=== PATIENT | female | born 1965 | race Caucasian/White ===

== ENCOUNTER 2016-03-14 12:50 | Outpatient (CLI) ==
[2015-12-12 12:27] VITALS: BMI 26.6
[2016-03-14 13:17] LABS: BASOPHILS % (AUTO) 0.9 % (0.0-3.0); EOSINOPHILS # (AUTO) 0.2 K/ul (0.0-0.7); EOSINOPHILS % (AUTO) 3.9 % (0.0-7.0); HEMATOCRIT 43.2 % (37.0-47.0); HEMOGLOBIN 14.5 g/dl (12.0-16.0); IMMATURE GRANULOCYTE % (AUTO) 0.2 % (0.0-5.0); LYMPHOCYTES # (AUTO) 2.1 K/uL (0.60-3.4); MEAN CORPUSCULAR HEMOGLOBIN 29.6 pg (27.0-31.0); MEAN CORPUSCULAR HGB CONC 33.6 (31.8-35.4); MEAN CORPUSCULAR VOLUME 88.2 fl (81.0-99.0); MONOCYTES # (AUTO) 0.3 K/uL (0.4-2.0); NEUTROPHILS # (AUTO) 1.9 K/ul (2.0-6.9); PLATELET COUNT 187 10^3/uL (140-440); WHITE BLOOD COUNT 4.59 K/ul (4.6-10.2)
[2016-03-14 14:26] LABS: ALBUMIN/GLOBULIN RATIO 1.38; ANION GAP 9.2; BILIRUBIN,TOTAL 0.84 mg/dL (0.00-1.20); BUN/CREATININE RATIO 7.14; CALCIUM 9.5 mg/dL (8.2-10.2); CHOL/HDL RATIO 4.6 (4.5-5.5); CREATININE 0.84 mg/dL (0.60-1.30); POTASSIUM 4.2 mmol/L (3.5-5.10); TOTAL PROTEIN 6.9 g/dL (6.4-8.2)
== END 2016-03-14 12:51 | disposition home or self-care (01) ==
LOC: LAB 12:50
PROVIDERS: ATTEND Nurse Practitioner Family
DX: E78.5 Hyperlipidemia, unspecified (principal); F32.9 Major depressive disorder, single episode, unspecified
CPT/HCPCS: 36415; 80053; 80061; 84439; 84443; 85025

== ENCOUNTER → 2016-05-22 | Outpatient (POV) ==
[2015-12-12 12:27] VITALS: BMI 26.6
== END ==
LOC: OUTPT 00:01
PROVIDERS: ATTEND Otolaryngology
DX: H91.90 Unspecified hearing loss, unspecified ear (principal)
CPT/HCPCS: 92557; 92567

== ENCOUNTER 2016-10-14 13:12 | Outpatient (CLI) ==
[2015-12-12 12:27] VITALS: BMI 26.6
[2016-10-14 13:22] LABS: BASOPHILS % (AUTO) 0.7 % (0.0-3.0); EOSINOPHILS # (AUTO) 0.1 K/ul (0.0-0.7); EOSINOPHILS % (AUTO) 2.6 % (0.0-7.0); HEMATOCRIT 42.3 % (37.0-47.0); HEMOGLOBIN 14.5 g/dl (12.0-16.0); IMMATURE GRANULOCYTE % (AUTO) 0.4 % (0.0-5.0); LYMPHOCYTES # (AUTO) 1.7 K/uL (0.60-3.4); LYMPHOCYTES % (AUTO) 37.9 (10.0-50.0); MEAN CORPUSCULAR HEMOGLOBIN 29.9 pg (27.0-31.0); MEAN CORPUSCULAR HGB CONC 34.3 (31.8-35.4); MEAN CORPUSCULAR VOLUME 87.2 fl (81.0-99.0); MONOCYTES # (AUTO) 0.4 K/uL (0.4-2.0); MONOCYTES % (AUTO) 8.3 (0-10); NEUTROPHILS # (AUTO) 2.3 K/ul (2.0-6.9); NEUTROPHILS % (AUTO) 50.1; PLATELET COUNT 187 10^3/uL (140-440); RED BLOOD COUNT 4.85 10^6/ul (4.20-5.40); WHITE BLOOD COUNT 4.57 K/ul (4.6-10.2)
[2016-10-14 13:46] LABS: ALBUMIN 3.8 g/dL (3.4-5.0); ALBUMIN/GLOBULIN RATIO 1.36; ANION GAP 13.2; BILIRUBIN,TOTAL 0.68 mg/dL (0.00-1.20); BUN/CREATININE RATIO 8.13; CALCIUM 9.5 mg/dL (8.2-10.2); CHOL/HDL RATIO 4.3 (4.5-5.5); CREATININE 0.86 mg/dL (0.60-1.30); POTASSIUM 4.2 mmol/L (3.5-5.10); TOTAL PROTEIN 6.6 g/dL (6.4-8.2)
== END 2016-10-14 13:13 | disposition home or self-care (01) ==
LOC: LAB 13:12
PROVIDERS: ATTEND Nurse Practitioner Family
DX: E78.5 Hyperlipidemia, unspecified (principal); F32.9 Major depressive disorder, single episode, unspecified
CPT/HCPCS: 36415; 80053; 80061; 84443; 85025

== ENCOUNTER 2016-10-22 11:47 | Emergency (ER) ==
[2016-10-22 11:52] VITALS: BP 108/72; TEMP 97.3; BMI 27.3
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
[2016-10-22] MEDS ORDERED: BENADRYL IM STA (12:23)
[2016-10-22] MEDS ORDERED: DECADRON 4 MG/ML SDV IM STA (12:23)
== END 2016-10-22 13:01 | disposition home or self-care (01) ==
LOC: ED 11:47
DX: T36.8X5A Adverse effect of other systemic antibiotics, initial encounter (principal); L50.0 Allergic urticaria; F17.210 Nicotine dependence, cigarettes, uncomplicated
CPT/HCPCS: 96372; 99282

== ENCOUNTER 2017-04-14 10:16 | Outpatient (CLI) | END 2017-04-14 10:17 | disposition home or self-care (01) | LOC: RHC-LAB 10:16 | PROVIDERS: ATTEND Emergency Medicine | DX: E78.5 Hyperlipidemia, unspecified (principal); F32.9 Major depressive disorder, single episode, unspecified | CPT/HCPCS: 36415; 80053; 80061; 84443; 85025 ==

== ENCOUNTER 2017-04-15 11:41 | Outpatient (CLI) ==
--- NOTE | 2017-04-15 13:06 | DI ---
EXAM: LEFT KNEE. HISTORY: Left knee pain FINDINGS: Left knee four view. Articular cartilage width is normal. There is no fracture or joint effusion. Bone density and soft tissues are within normal limits. IMPRESSION: Within normal limits.
== END 2017-04-15 11:42 | disposition home or self-care (01) ==
LOC: RAD 11:41
PROVIDERS: ATTEND Emergency Medicine
DX: M25.562 Pain in left knee (principal); G89.29 Other chronic pain

== ENCOUNTER 2017-04-17 10:29 | Outpatient (CLI) ==
--- NOTE | 2017-04-18 08:17 | MAMMO ---
EXAM: Digital screening mammogram with 3-D tomosynthesis and CAD HISTORY: Screening mammogram. COMPARISON: Mammogram 07/21/2015 and 12/13/2013 FINDINGS: Images demonstrate scattered fibroglandular breast densities. Benign calcifications are unc hanged. There is no suspicious or new calcification or mass. There has been no significant interval change. IMPRESSION: No new or suspicious calcification or mass. Recommendations: Annual screening mammogram. BIRADS category II: Benign findings
== END 2017-04-17 10:30 | disposition home or self-care (01) ==
LOC: RAD 10:29
PROVIDERS: ATTEND Emergency Medicine
DX: Z12.31 Encounter for screening mammogram for malignant neoplasm of breast (principal)
CPT/HCPCS: 77067

== ENCOUNTER 2017-09-15 13:00 | Outpatient (RCR) ==
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
== END 2017-09-16 23:59 ==
PROVIDERS: ATTEND Orthopaedic Surgery
DX: M25.562 Pain in left knee (principal); G89.29 Other chronic pain; M17.12 Unilateral primary osteoarthritis, left knee

== ENCOUNTER 2017-10-03 14:00 | Outpatient (RCR) ==
[2017-04-17 10:34] VITALS: BMI 27.3
--- NOTE | 2017-09-17 11:52 | RS.CXNS ---
Date of scheduled appointment: 09/17/17 Type: Cancel Reason for Cancel/NS: Patient going out of town, rescheduled.
--- NOTE | 2017-09-23 15:42 | RS.OPPTDN ---
Subjective Date of Note: 09/23/17 Visit #: 3 Date of Evaluation: 09/10/17 Payer Source: Medicaid Treatment Diagnosis: L knee pain, L knee OA Current Subjective/complaints:: Patient says she is wore out from her trip to [place]. She says she is able to tell though that she can walk more without her knee hurting so badly. *Precautions: n/a Pain Assessment - Pain Description Pain Location: does not rate, but says it is bothering her more due to driving - Treatment Modality: Electrical Stim Unattended Parameters/Method Applied: L knee IFC 4 large pads crossed @ 12-13 ma x 20 mins after therex Patient Position: Supine - Heat/Cryotherapy Treatment: Cryotherapy Interventions - Exercise/Activities/Manual Therapy Exercises/Activities: Patient received passive HS and heel cord stretching for the L LE. PROM for knee flexion. Begins: QS, SAQ with 1 1/2#, SLR, Ball squeezes, hip abd in hooklying progressed to green tband, ham curls/DF progressed to green tband, all 2x10 reps. Patient received education on diagnosis and joint mechanics with review of HEP. Total minutes of Exercise: 25 Manual Therapy: na HOME EXERCISE PROGRAM: pt given written HEP including AP, QS, SAQ, LAQ, SLR - Charges Timed Code Treatment Minutes: 25 Total Treatment Time: 45 Procedures billed for this date of service:: cp, estim(un), ex2 Assessment: Patient experiencing general fatigue and elevated soreness to the L knee following prolonged drive to/from [place] to see her daughter. She is able to amb further distances with less difficulty now however. She is compliant with HEP and did express reduced pain after todays session. Patient Education: Body/Joint mechanics, Home Exercise Program Patient demonstrates compliance with HEP?: Yes Short Term Goals Goal #1: pt independent with initial HEP Goal to be met by: 09/24/17 Progress towards Goal:: Progressing Goal #2: pt with L knee ext 0 Goal to be met by: 09/24/17 Progress towards Goal:: Progressing Goal #3: pt amb with improved heel strike/toe off pattern with decreased pain Goal to be met by: 09/24/17 Progress towards Goal:: Progressing Goal #4: pt with decreased edema L knee Goal to be met by: 09/24/17 Progress towards Goal:: Progressing Senior Mechanical Estimator Goals Goal #1: pt with L knee ROM WFL's Goal to be met by: 10/08/17 Progress towards goal: Progressing Goal #2: pt report decreased pain with normal household activities Goal to be met by: 10/08/17 Goal #3: Increased strength L knee 4+/5 Goal to be met by: 10/08/17 Goal #4: . Plan PLAN OF CARE EXPIRES ON:: 10/08/17 ORDER # VISITS AND/OR THROUGH DATE: 10/08/17 PLAN: Continue for therex to the L LE improving ROM, strength, and pain.
--- NOTE | 2017-09-26 15:15 | RS.OPPTDN ---
Subjective Date of Note: 09/26/17 Visit #: 4 Date of Evaluation: 09/10/17 Payer Source: Medicaid Treatment Diagnosis: L knee pain, L knee OA Current Subjective/complaints:: Patient says she can tell that her swelling is less and her knee is stronger. She reports it continues to pop many times throughout the day. *Precautions: n/a - Treatment Modality: Electrical Stim Unattended Parameters/Method Applied: hivolt 4 large pads crossed over the L knee following therex @ 80 pk volts x 20 mins Patient Position: Supine - Heat/Cryotherapy Treatment: Cryotherapy Interventions - Exercise/Activities/Manual Therapy Exercises/Activities: Patient received passive HS and heel cord stretching for the L LE. PROM for knee flexion. Continues with: QS, SAQ progressed to 2#, SLR, Ball squeezes, hip abd with knee extended, hip abd in hooklying progressed to green tband, ham curls/DF progressed to green tband, all 2x10 reps. Patient received education on diagnosis and joint mechanics with review of HEP. Total minutes of Exercise: 25 Manual Therapy: na HOME EXERCISE PROGRAM: pt given written HEP including AP, QS, SAQ, LAQ, SLR - Charges Timed Code Treatment Minutes: 25 Total Treatment Time: 45 Procedures billed for this date of service:: cp, estim (un), ex2 Assessment: Patient progressing with improved pain level, swelling, and strength. She denies feeling that the knee is unstable when descending steps now. Progress strengthening next week to leg press and standing tband exercises. Patient Education: Body/Joint mechanics, Home Exercise Program, Education of Plan of Care Patient demonstrates compliance with HEP?: Yes Short Term Goals Goal #1: pt independent with initial HEP Goal to be met by: 09/24/17 Progress towards Goal:: Progressing Goal #2: pt with L knee ext 0 Goal to be met by: 09/24/17 Progress towards Goal:: Progressing Goal #3: pt amb with improved heel strike/toe off pattern with decreased pain Goal to be met by: 09/24/17 Progress towards Goal:: Progressing Goal #4: pt with decreased edema L knee Goal to be met by: 09/24/17 Progress towards Goal:: Progressing Usp Goals Goal #1: pt with L knee ROM WFL's Goal to be met by: 10/08/17 Progress towards goal: Progressing Goal #2: pt report decreased pain with normal household activities Goal to be met by: 10/08/17 Goal #3: Increased strength L knee 4+/5 Goal to be met by: 10/08/17 Goal #4: . Plan PLAN OF CARE EXPIRES ON:: 10/08/17 ORDER # VISITS AND/OR THROUGH DATE: 10/08/17 PLAN: Patient to continue x 4 more sessions.
--- NOTE | 2017-09-29 16:44 | RS.OPPTDN ---
Subjective Date of Note: 09/29/17 Visit #: 5 Date of Evaluation: 09/10/17 Payer Source: Medicaid Treatment Diagnosis: L knee pain, L knee OA Current Subjective/complaints:: Patient says she is having a bad day today. Reports increased L knee pain. Feels weather is changing. Describes ache and stiffness. Asks to avoid ice/estim after therex today. *Precautions: n/a Interventions - Exercise/Activities/Manual Therapy Exercises/Activities: Patient received passive HS and heel cord stretching for the L LE. PROM for knee flexion. Continues with: QS, SAQ progressed to 2#, SLR, Ball squeezes, hip abd/add with knee extended with green tband, hip abd in hooklying progressed to green tband, ham curls/DF green tband, all 2x10 reps. Total minutes of Exercise: 33 Manual Therapy: na HOME EXERCISE PROGRAM: pt given written HEP including AP, QS, SAQ, LAQ, SLR - Charges Timed Code Treatment Minutes: 33 Total Treatment Time: 33 Procedures billed for this date of service:: ex2 Assessment: Patient presents with elevated pain to the L knee generally throughout the joint. She appears to vincent all therex well except increased fatigue with SLR. No increase in swelling noted and remains with normal ROM. Omitted modalities per her request so that she may return home. Patient Education: Home Exercise Program, Activity Modification Patient demonstrates compliance with HEP?: Yes Short Term Goals Goal #1: pt independent with initial HEP Goal to be met by: 09/24/17 Progress towards Goal:: Progressing Goal #2: pt with L knee ext 0 Goal to be met by: 09/24/17 Progress towards Goal:: Progressing Goal #3: pt amb with improved heel strike/toe off pattern with decreased pain Goal to be met by: 09/24/17 Progress towards Goal:: Progressing Goal #4: pt with decreased edema L knee Goal to be met by: 09/24/17 Progress towards Goal:: Progressing Shelter Goals Goal #1: pt with L knee ROM WFL's Goal to be met by: 10/08/17 Progress towards goal: Progressing Goal #2: pt report decreased pain with normal household activities Goal to be met by: 10/08/17 Goal #3: Increased strength L knee 4+/5 Goal to be met by: 08/22/18 Goal #4: . Plan PLAN OF CARE EXPIRES ON:: 10/08/17 ORDER # VISITS AND/OR THROUGH DATE: 10/08/17 PLAN: BIW x 1-2 more sessions.
--- NOTE | 2017-10-03 16:27 | RS.OPPTDN ---
Subjective Date of Note: 10/03/17 Visit #: 6 Date of Evaluation: 09/10/17 Payer Source: Medicaid Treatment Diagnosis: L knee pain, L knee OA Current Subjective/complaints:: Patient says she is feeling much better today than at her last session. Reports she has flare ups of swelling to the L medial knee, but reports she feels her knee is stronger and more stable. She says she has many MD appts next week and will not be able to attend. *Precautions: n/a Interventions - Exercise/Activities/Manual Therapy Exercises/Activities: Patient received passive HS and heel cord stretching for the L LE. PROM for knee flexion. Continues with: QS, SAQ progressed to 3#, SLR, Ball squeezes, hip abd/add with knee extended with green tband, hip abd in hooklying progressed to green tband, ham curls/DF green tband, all 2x10 reps. Began leg presses 30# bilaterally 3/10. Step up/down board 2x10 with prompts for sequence. Total minutes of Exercise: 38 Manual Therapy: na HOME EXERCISE PROGRAM: pt given written HEP including AP, QS, SAQ, LAQ, SLR - Charges Timed Code Treatment Minutes: 38 Total Treatment Time: 38 Procedures billed for this date of service:: ex3 Assessment: Patient demo 54% impairment now for the LE Index compared to 65% impairment at [facility]. She is compliant with HEP and satisfied with her progress at this time. POC dates on 10/08/17 and she will not be able to attend due to multiple MD appts next week. Reviewed HeP. Patient Education: Education of diagnosis, Home Exercise Program, Education of Plan of Care Patient demonstrates compliance with HEP?: Yes Short Term Goals Goal #1: pt independent with initial HEP Goal to be met by: 09/24/17 Progress towards Goal:: Met Goal #2: pt with L knee ext 0 Goal to be met by: 09/24/17 Progress towards Goal:: Met Goal #3: pt amb with improved heel strike/toe off pattern with decreased pain Goal to be met by: 09/24/17 Progress towards Goal:: Met Goal #4: pt with decreased edema L knee Goal to be met by: 09/24/17 Progress towards Goal:: Progressing Comments:: patient struggles with this intermittently and independent in edema managem Engineering Executive Goals Goal #1: pt with L knee ROM WFL's Goal to be met by: 10/08/17 Progress towards goal: Met Goal #2: pt report decreased pain with normal household activities Goal to be met by: 10/08/17 Progress towards goal: Progressing Goal #3: Increased strength L knee 4+/5 Goal to be met by: 10/08/17 Progress towards goal: Met Goal #4: . Plan PLAN OF CARE EXPIRES ON:: 10/08/17 ORDER # VISITS AND/OR THROUGH DATE: 10/08/17 PLAN: Plan to d/c as her care plan will next Friday and she is unable to attend next week. Most goals met.
--- NOTE | 2017-10-09 11:59 | RS.QUICKDC ---
Discharge from PT Date of Discharge: 10/09/17 Number of Visits: 6 Reason for Discharge: Patient has attended for treatment to the L knee including cryotherapy and estim along with progressive strengthening to the L LE. She has a HEP with tbands and received ongoing education of diagnosis and joint mechanics/postural techniques. She voiced only temporary mild relief at this point. See daily notes for specific treatment.
== END 2017-10-17 23:59 ==
PROVIDERS: ATTEND Orthopaedic Surgery
DX: M25.562 Pain in left knee (principal); M17.12 Unilateral primary osteoarthritis, left knee

== ENCOUNTER 2018-03-25 13:52 | Outpatient (CLI) ==
[2017-04-17 10:34] VITALS: BMI 27.3
--- NOTE | 2018-03-25 14:18 | DI ---
EXAM: Two views of the left knee. History: Left knee pain. Comparison: Left knee radiograph 04/15/2017 Findings: No acute fracture or dislocation. No abnormal calcifications or radiopaque foreign bodies . Joint spaces are preserved. Small subchondral lucency of the patella. Impression: 1. No acute osseous abnormality. 2. Small subchondral lucency of the patella is most likely degenerative in nature. If pain persists , recommend further evaluation with MRI.
== END 2018-03-25 13:53 | disposition home or self-care (01) ==
LOC: RAD 13:52
PROVIDERS: ATTEND Nurse Practitioner Family
DX: M25.562 Pain in left knee (principal)

== ENCOUNTER 2018-07-14 09:56 | Outpatient (CLI) ==
[2017-04-17 10:34] VITALS: BMI 27.3
--- NOTE | 2018-07-14 11:15 | US ---
EXAM: Pelvic ultrasound HISTORY: , and perineal pain COMPARISON: None TECHNIQUE: Pelvic ultrasound was performed transvaginally FINDINGS: Uterus measures 2.7 x 3.1 x 5.1 cm. Uterus is retroverted. Myometrial echogenicity is no rmal. Endometrium appears normal measures 0.3 cm. Right ovary measures 1.7 x 1.2 x 1.0 cm. Left ov loni measures 1.6 x 1.1 x 1.0 cm. Ovaries are unremarkable. No free fluid identified in the [place]. IMPRESSION: Unremarkable pelvic ultrasound.
== END 2018-07-14 09:57 | disposition home or self-care (01) ==
LOC: RAD 09:56
PROVIDERS: ATTEND Advanced Practice Midwife
DX: R10.2 Pelvic and perineal pain (principal)

== ENCOUNTER 2018-07-15 11:18 | Outpatient (CLI) ==
[2017-04-17 10:34] VITALS: BMI 27.3
--- NOTE | 2018-07-17 11:06 | MAMMO ---
EXAM: Digital screening mammogram with Tomosynthesis HISTORY: Screening COMPARISON: 04/17/2017 FINDINGS: Digital MLO and CC views of the right and left breast were performed. Tomosynthesis was performed. Computer aided detection utilized. There are scattered fibroglandular densities. There i s a nodule in the left medial breast posterior depth. There is no evidence for mass, asymmetry, dist ortion, or suspicious calcifications in the right breast. IMPRESSION: 1. Left breast nodule. Recommend diagnostic mammogram and ultrasound for further evaluation. 2. Negative right breast mammogram. BIRADS category 0, further evaluation recommended.
== END 2018-07-15 11:19 | disposition home or self-care (01) ==
LOC: RAD 11:18
PROVIDERS: ATTEND Advanced Practice Midwife
DX: Z12.31 Encounter for screening mammogram for malignant neoplasm of breast (principal)

== ENCOUNTER 2018-07-29 10:23 | Outpatient (CLI) ==
[2017-04-17 10:34] VITALS: BMI 27.3
--- NOTE | 2018-07-29 11:01 | MAMMO ---
EXAM: Left digital diagnostic mammogram (2-D and 3-D) History: Left breast mass. Comparison: Bilateral mammogram 07/15/2018 Findings: Left breast density is scattered. Additional spot compression views of the left breast con firm medial posterior left breast mass. No suspicious microcalcifications. Impression: Indeterminate left breast mass. Recommend further evaluation of left breast ultrasound. BI-RADS 0, incomplete. Further evaluation needed
--- NOTE | 2018-07-29 11:31 | US ---
EXAM: Left breast ultrasound. History: Left breast mass. Comparison: Left diagnostic mammogram 07/29/2018 Technique: Multiple sonographic images through the left breast were obtained. Color duplex Doppler w as used to interrogate vascular flow. Findings: 0.6 cm oval hypoechoic mass within the left breast at 9 o'clock posterior depth. It is un sure if this correlates with the mammographic abnormality. No other masses are identified. Impression: 0.6 cm oval mass within the left breast which probably a minimally complicated cyst and is probably benign. Recommend 6-month follow-up left mammogram and ultrasound to document stability. BI-RADS 3, probably benign
== END 2018-07-29 10:24 | disposition home or self-care (01) ==
LOC: RAD 10:23
PROVIDERS: ATTEND Advanced Practice Midwife
DX: N63.20 Unspecified lump in the left breast, unspecified quadrant (principal)